=== PATIENT | female | born 1980 | race Caucasian/White ===

== ENCOUNTER 2023-08-06 17:01 | Emergency (ER) | payer MEDICAID, SELFPAY ==
[2023-08-06 17:02] VITALS: BP 136/92; PULSE 111; RESP 16; TEMP 36.5; O2SAT 98; BMI 25.9
--- NOTE | 2023-08-06 17:22 | EDS_ITS ---
HPI <CORNELIA Rubin - Last Filed: 08/06/23 19:26> History of Present Illness Chief Complaint: Abd Pain Narrative Narrative: 42-year-old female states she has a chronic issue where she urinates coughing or sneezing so she had urodynamic testing 3 days ago with her urologist in [place]. She states since then has had suprapubic and bilateral lower pelvic discomfort and burning with urination. No fever or chills. She has nausea but no vomiting. No flank pain. She has had a history of cholecystectomy, appendectomy, complete hysterectomy, x 2, and umbilical hernia repair x 4. PFSH <CORNELIA Rubin - Last Filed: 08/06/23 19:26> PFSH Home Medications aripiprazole 30 mg tablet 30 mg PO QHS mood stabilizer 08/06/23 [History Last Taken Unknown] clonazepam 0.5 mg tablet 0.5 mg PO Q24H anxiety 08/06/23 [History Last Taken Unknown] conjugated estrogens 0.625 mg/gram vaginal cream (Premarin) 0.625 mg vaginal .COMPLEX 08/06/23 [History Last Taken Unknown] dulaglutide 4.5 mg/0.5 mL subcutaneous pen injector (Trulicity) 4.5 mg subcut QWEEK diabetes 08/06/23 [History Last Taken Unknown] ergocalciferol (vitamin D2) 1,250 mcg (50,000 unit) capsule 08/06/23 [History Last Taken Unknown] fluconazole 150 mg tablet 150 mg PO 08/06/23 [History Last Taken Unknown] glipizide 10 mg tablet 10 mg PO BID diabetes 08/06/23 [History Last Taken Unknown] hyoscyamine sulfate 0.125 mg sublingual tablet 0.125 mg PO Q4H cramping 08/06/23 [History Last Taken Unknown] insulin aspart U-100 TID PRN diabetes 08/06/23 [History Last Taken Unknown] isosorbide mononitrate 30 mg tablet,extended release 24 hr 30 mg PO BID heart 08/06/23 [History Last Taken Unknown] methenamine 81.6 mg-sod phos 40.8 mg-methylene blue 0.12mg-hyos tablet (Urogesic -Blue) 1 tab PO 08/06/23 [History Last Taken Unknown] methocarbamol 500 mg tablet mg 08/06/23 [History Last Taken Unknown] metoprolol succinate 100 mg tablet,extended release 24 hr 100 mg PO DAILY htn 08/06/23 [History Last Taken Unknown] mirtazapine 15 mg tablet 15 mg PO QHS 08/06/23 [History Last Taken Unknown] nitrofurantoin monohydrate/macrocrystals 100 mg capsule (Macrobid) 100 mg PO BID 5 days #10 caps 08/06/23 [Rx Last Taken Unknown] omeprazole 40 mg capsule,delayed release mg 08/06/23 [History Last Taken Unknown] phenazopyridine 200 mg tablet (Pyridium) 200 mg PO BID PRN PRN Pain #10 tabs 08/06/23 [Rx Last Taken Unknown] potassium chloride 20 mEq tablet,extended release(part/cryst) meq PO 08/06/23 [History Last Taken Unknown] promethazine 25 mg tablet mg 08/06/23 [History Last Taken Unknown] tizanidine 4 mg tablet mg 08/06/23 [History Last Taken Unknown] Allergy/AdvReac Type Severity Reaction Status Date / Time codeine Allergy Rash Verified 08/06/23 17:06 Iodinated Contrast Media Allergy Angioedema Verified 08/06/23 17:06 ketorolac [From Toradol] Allergy Rash Verified 08/06/23 17:06 ondansetron [From Zofran] Allergy Nausea Verified 08/06/23 17:06 tramadol [From Ultram] Allergy Rash Verified 08/06/23 17:06 sulfamethoxazole AdvReac Nausea Verified 08/06/23 17:06 [From Bactrim] trimethoprim [From Bactrim] AdvReac Nausea Verified 08/06/23 17:06 Social History Smoking Status: Never smoker ROS <CORNELIA Rubin - Last Filed: 08/06/23 19:26> ROS ED ROS Narrative Constitutional: Negative for fever, chills, malaise. CVS: Negative for chest pain. Respiratory: Negative for shortness of breath. GI: Positive for abdominal pain, nausea. Negative for vomiting, diarrhea, constipation, melena, hematochezia. : Positive for dysuria. Negative for hematuria. EXAM <CORNELIA Rubin - Last Filed: 08/06/23 19:26> Physical Exam Narrative Exam Narrative: CONST: Patient sitting in no acute distress. EYES: Normal inspection. NECK: Normal inspection. RESP: No respiratory distress, CTAB. CVS: Regular rate and rhythm, no murmur, no gallop. ABD: Soft with mild suprapubic tenderness, no guarding or rebound, nondistended. Back: Normal inspection, no CVA tenderness. SKIN: Color normal, no rash, warm, dry, intact. EXTREMITIES: Normal appearance, no pedal edema. NEURO: Oriented x4. PSYCH: Normal affect. Const Vital Signs: 08/06/23 17:02 08/06/23 19:20 Temperature 97.7 F L Temperature Source Oral Pulse Rate 111 H 106 H Respiratory Rate 16 15 Blood Pressure 136/92 H 138/99 H Blood Pressure Mean 106 112 Pulse Ox 98 98 Oxygen Delivery Method Room Air <Dr. Colton Calvert MD - Last Filed: 08/06/23 17:31> Physical Exam Const Vital Signs: 08/06/23 17:02 08/06/23 19:20 Temperature 97.7 F L Temperature Source Oral Pulse Rate 111 H 106 H Respiratory Rate 16 15 Blood Pressure 136/92 H 138/99 H Blood Pressure Mean 106 112 Pulse Ox 98 98 Oxygen Delivery Method Room Air MDM <CORNELIA Rubin - Last Filed: 08/06/23 19:26> [facility] Narrative Medical decision making narrative: Patient has pelvic discomfort after recent urodynamic testing at her urology office. A catheter was placed and removed for testing. No has dysuria. She appears well and nontoxic. Samm is soft with minimal suprapubic tenderness. No distention. No peritoneal signs. UA is no evidence of infection History gathered from: Patient and significant other Patient has dysuria after recent urodynamic testing with a catheter that was removed. She appears well and nontoxic. Abdomen is soft, mildly tender in suprapubic region, nondistended. Normal bowel sounds. Differential includes discomfort from catheterization, UTI, urinary retention. UA shows 10-25 WBCs and 1+ bacteria. It is contaminated with 5-10 epithelials but with her symptoms I will culture and treat for UTI. I also had glucose of BGT was checked and is 134. Patient then relayed she has type II diabetic so this correlates. Postvoid bladder scan shows 5 mL so she is not retaining. I prescribed Macrobid and Pyridium and recommended she call her urologist for follow-up. She was discharged in stable condition. I have personally performed a face to face assessment of the patient and have reviewed the GINGER Note. I performed a substantive portion of the visit including all aspects of the following. My urias findings include: History is 42-year-old female prior hysterectomy and . Recently had urodynamic testing at her urologist office. Now having dysuria. Denies fever. No vomiting. Exam is [well-appearing 42-year-old. Vital signs stable afebrile. HEENT exam normal. Lungs clear. Heart regular rhythm. Abdomen soft nondistended normal bowel sounds no peritoneal signs. Moving all 4 extremities. Nontender no edema.] Medical Decision Making [42-year-old with possible UTI I awaiting UA results.] Other additions or changes: [None] Lab Data Attestation: I reviewed the patient's lab results. Labs: Laboratory Results - last 24 hr 08/06/23 08/06/23 17:32 18:23 Urine Color Yellow Urine Clarity Cloudy Urine pH 6.0 Ur Specific [place] 1.025 Urine Protein 30 H Urine Glucose (UA) 250 H Urine Ketones 5 H Urine Occult Blood 10 H Urine Nitrite Negative Urine Bilirubin Negative Urine Urobilinogen 1 H Ur Leukocyte Esterase 25 H Urine RBC 0 SEEN Urine WBC 10-25 SEEN Ur Squamous Epith Cells 5-10 SEEN Urine Bacteria 1+ Urine Mucus 0 SEEN Urine Yeast 2+ Urine Test Negative POC Glucose 136 H <Dr. Colton Calvert MD - Last Filed: 08/06/23 17:31> [facility] MDM Narrative Medical decision making narrative: I have personally performed a face to face assessment of the patient and have reviewed the GINGER Note. I performed a substantive portion of the visit including all aspects of the following. My urias findings include: History is 42-year-old female prior hysterectomy and . Recently had urodynamic testing at her urologist office. Now having dysuria. Denies fever. No vomiting. Exam is [well-appearing 42-year-old. Vital signs stable afebrile. HEENT exam normal. Lungs clear. Heart regular rhythm. Abdomen soft nondistended normal bowel sounds no peritoneal signs. Moving all 4 extremities. Nontender no edema.] Medical Decision Making [42-year-old with possible UTI I awaiting UA results.] Other additions or changes: [None] Lab Data Labs: Laboratory Results - last 24 hr 08/06/23 08/06/23 17:32 18:23 Urine Color Yellow Urine Clarity Cloudy Urine pH 6.0 Ur Specific [place] 1.025 Urine Protein 30 H Urine Glucose (UA) 250 H Urine Ketones 5 H Urine Occult Blood 10 H Urine Nitrite Negative Urine Bilirubin Negative Urine Urobilinogen 1 H Ur Leukocyte Esterase 25 H Urine RBC 0 SEEN Urine WBC 10-25 SEEN Ur Squamous Epith Cells 5-10 SEEN Urine Bacteria 1+ Urine Mucus 0 SEEN Urine Yeast 2+ Urine Test Negative POC Glucose 136 H Discharge Plan Triage Chief Complaint: Abd Pain ED Midlevel Provider: Judith Aleman ED Provider: Colton Calvert Dx/Rx/DC Orders Clinical Impression: Abdominal pain, suprapubic, UTI (urinary tract infection) Instructions: Abdominal Pain, UTIs Understanding Prescriptions: New phenazopyridine [Pyridium] 200 mg tablet 200 mg PO BID PRN PRN (Reason: Pain) Qty: 10 0RF nitrofurantoin monohyd/m-cryst [Macrobid] 100 mg capsule 100 mg PO BID 5 Days Qty: 10 0RF Rx Instructions: must administer with a meal/food No Action aripiprazole 30 mg tablet 30 mg PO QHS Patient Comments: TAKE ONE (1) TABLET BY MOUTH EVERY EVENING clonazepam 0.5 mg tablet 0.5 mg PO Q24H Patient Comments: TAKE ONE-HALF (1/2) TO ONE (1) TABLET BY MOUTH DAILY NEEDED FOR EXTREME ANXIETY/PANIC Premarin 0.625 mg/gram cream 0.625 mg vaginal .COMPLEX Patient Comments: PLACE 0.5 GMS VAGINALLY TWICE A WEEK Rx Instructions: 0.625 mg vaginally twice a week; Trulicity 4.5 mg/0.5 mL pen injector 4.5 mg SUBCUT QWEEK Patient Comments: INJECT 4.5 MG INTO THE SKIN ONCE A WEEK ON THE SAME DAY fluconazole 150 mg tablet 150 mg PO Patient Comments: TAKE ONE (1) TABLET BY MOUTH ONCE FOR 1 DOSE ergocalciferol (vitamin D2) 1,250 mcg (50,000 unit) capsule Patient Comments: TAKE ONE (1) CAPSULE BY MOUTH EVERY WEEK glipizide 10 mg tablet 10 mg PO BID Patient Comments: TAKE ONE (1) TABLET BY MOUTH TWO (2) TIMES A DAY BEFORE MEALS hyoscyamine sulfate 0.125 mg tablet, sublingual 0.125 mg PO Q4H Patient Comments: TAKE ONE (1) TABLET BY MOUTH EVERY FOUR (4) HOURS NEEDED FOR CRAMPING; not taking because not helpful 08/06/23 metoprolol succinate 100 mg tablet extended release 24 hr 100 mg PO DAILY Patient Comments: TAKE ONE (1) TABLET BY MOUTH DAILY mirtazapine 15 mg tablet 15 mg PO QHS Patient Comments: TAKE ONE-HALF (1/2) TO ONE (1) TABLET BY MOUTH EVERY NIGHT AT BEDTIME NEEDED FOR SLEEP isosorbide mononitrate 30 mg tablet extended release 24 hr 30 mg PO BID Patient Comments: TAKE ONE (1) TABLET BY MOUTH TWO (2) TIMES A DAY methen-sod phos-meth blue-hyos [Urogesic-Blue] 81.6-40.8-0.12 mg tablet 1 tab PO methocarbamol 500 mg tablet Patient Comments: TAKE ONE (1) TABLET BY MOUTH TWO (2) TIMES A DAY NEEDED FOR MUSCLE SPASMS. tizanidine 4 mg tablet Patient Comments: TAKE ONE (1) TABLET BY MOUTH EVERY EIGHT (8) HOURS NEEDED FOR MUSCLE SPASMS omeprazole 40 mg capsule,delayed release(DR/EC) Patient Comments: TAKE ONE (1) CAPSULE BY MOUTH DAILY potassium chloride 20 mEq tablet,ER particles/crystals PO Patient Comments: TAKE ONE (1) TABLET BY MOUTH DAILY promethazine 25 mg tablet Patient Comments: TAKE ONE (1) TABLET BY MOUTH EVERY SIX (6) HOURS NEEDED FOR NAUSEA AND/OR VOMITING insulin aspart U-100 [Novolog PenFill U-100 Insulin] TID PRN Rx Instructions: sliding scale Primary Care Provider: EDWARD ALMONTE Referrals: [facility] Doctor,Out of [Non-Staff] - Activity Restrictions/Additional Instructions: Try Pyridium for urinary discomfort and call your urologist for follow-up Disposition Disposition: Home, Self Care Discharge Date/Time: 08/06/23 19:22
[2023-08-06 17:39] LABS: Mucous, Urine 0 SEEN /hpf (<or=2+); Red Blood Cells-Urine 0 SEEN /hpf (0-5)
[2023-08-06 17:56] LABS: Color, Urine Yellow (Yellow); Glucose, Dipstick 250 mg/dl (Normal); Ketone-Dipstick 5 mg/dl (Negative); Leukocyte Esterase-Dipstick 25 /ul (Negative); Nitrite-Dipstick Negative (Negative); Occult Blood-Urine 10 /ul (Negative); Protein-Dipstick 30 mg/dl (Negative); Specific Gravity, Urine 1.025 (1.002-1.030); Urine Bilirubin Dipstick Negative (Negative); Urine Clarity Cloudy (Clear); Urine Urobilinogen 1 mg/dl (Normal)
[2023-08-06 18:01] LABS: Internal QC Validated? YES +Cl - CLEAR BKGD; Pregnancy, Urine Negative Negative
[2023-08-06 18:19] LABS: Bacteria 1+ /hpf (None Seen); Squamous Epithelial Cells - UA 5-10 SEEN /hpf (5-10); White Blood Cells 10-25 SEEN /hpf (0-5); Yeast-Urine 2+ /hpf (None Seen)
[2023-08-06 18:56] LABS: Bedside Glucose 136 mg/dL (74-106)
[2023-08-06 19:20] VITALS: BP 138/99; PULSE 106; RESP 15; O2SAT 98
== END 2023-08-06 19:22 | disposition home or self-care (01) ==
PROVIDERS: Physician Assistant; Emergency Provider Emergency Medicine; Visit Provider Emergency Medicine
DX: N39.0 Urinary tract infection, site not specified (principal); E11.9 Type 2 diabetes mellitus without complications; Z79.4 Long term (current) use of insulin; Z79.899 Other long term (current) drug therapy; R30.0 Dysuria
CPT/HCPCS: 81001; 81025; 82962; 87086; 87088; 99283